=== PATIENT | male | born 1945 | race Caucasian/White ===

== ENCOUNTER 2021-08-14 09:42 | Inpatient (IN) | payer MEDICARE, OTHER ==
[~2021-08-14] VITALS: Ht 182.9 cm; Wt 111.1 kg
--- NOTE | 2021-08-14 11:09 | NUR ---
PT C/O SOB, COUGH, PERIODIC NAUSEA, AND FATIGUE THIS WEEK. SOB AND COUGH INCREASE WITH EXERTION. PT DENIES CP, DIZZINESS, OR FEVERS. PT HAS REC'VD BOTH COVID VACCINES. PT DENIES RESPIRATORY HX. PT CONNECTED TO VS MONITORING. RAILS UP. BELONGINGS AND CALL LIGHT WITHIN REACH. AWAITING FURTHER ORDERS.
[2021-08-14] MEDS ORDERED: SODIUM CHLORIDE 0.9% 1,000ML IVBOLUS ONE (11:30)
[2021-08-14] MEDS ORDERED: SODIUM CHLORIDE FLUSH 10ML SYR IVF ONE (11:30)
[2021-08-14 12:00] LABS: BASOPHILS % (AUTO) 0 % (0-1); EOSINOPHILS % (AUTO) 0 % (1-7); LYMPHOCYTES % (AUTO) 7 % (22-44); MEAN CORPUSCULAR HEMOGLOBIN 32.6 pg (27.5-34.5); MEAN CORPUSCULAR HGB CONC 35.9 g/dL (33.2-36.2); MEAN PLATELET VOLUME 6.8 fL (7.4-10.4); MONOCYTES % (AUTO) 9 % (2-9); NEUTROPHILS % (AUTO) 84 % (42-75); PLATELET COUNT 266 x10^3/uL (130-400); RED BLOOD COUNT 3.89 x10^6/uL (4.38-5.82); RED CELL DISTRIBUTION WIDTH 13.6 % (9.4-14.8)
[2021-08-14 12:08] LABS: ALBUMIN 3.3 g/dL (3.4-5.0); ANION GAP 12 mmol/L (5-15); CALCIUM 8.9 mg/dL (8.5-10.1); CHLORIDE 97 mmol/L (98-107)
[2021-08-14 12:15] LABS: ALANINE AMINOTRANSFERASE 87 U/L (12-78); ALKALINE PHOSPHATASE 71 U/L (45-117); BILIRUBIN,TOTAL 0.8 mg/dL (0.2-1.0); CREATININE 0.91 mg/dL (0.7-1.3); TROPONIN I < 0.015 ng/mL (0.000-0.045)
--- NOTE | 2021-08-14 15:03 | NUR ---
BREAK RN: PT IS 87% RA WHEN STANDING UP FROM THE BED. PT REPORTS HE FEELS WEAK. PT NOW RESTING IN BED ON 3L NC AT 94%. ENERGY BROKER ON. VS STABLE. CALL LIGHT IN PLACE. WILL CONTINUE TO MONITOR WHILE PRIMARY RN IS ON BREAK.
[2021-08-14] MEDS ORDERED: NS + 20MEQ KCL 1,000 ML IV ONE (17:14)
[2021-08-14] MEDS ORDERED: ENOXAPARIN 40 MG/0.4 ML ONE (17:14)
[2021-08-14] MEDS: NS + 20MEQ KCL 1,000 ML IV SCH (17:22)
[2021-08-14] MEDS: ENOXAPARIN 40 MG/0.4 ML SQ SCH (17:23)
[2021-08-14] MEDS ORDERED: ONDANSETRON 2MG/ML, 2ML IVPush PRN (17:30)
[2021-08-14] MEDS ORDERED: GUAIFENESIN/DM 200-20MG, 10ML UDC PO PRN (17:30)
[2021-08-14] MEDS ORDERED: MELATONIN 5 MG TABLET PO PRN (17:30)
[2021-08-14] MEDS ORDERED: ONDANSETRON ODT 4 MG PO PRN (17:30)
--- NOTE | 2021-08-14 19:02 | NUR ---
Report from Tyesha CHRISTENSEN
[2021-08-14] MEDS: INSULIN LISPRO 100 UNITS/ML, PEN SQ-INSULIN SCH (20:08)
[2021-08-14 22:00] VITALS: BP 153/87
--- NOTE | 2021-08-14 22:14 | NUR ---
Report to Marta CHRISTENSEN
[2021-08-15 00:10] VITALS: BP 162/84
[2021-08-15] MEDS: NS + 20MEQ KCL 1,000 ML IV SCH ×2 (03:52→14:38)
[2021-08-15 04:36] LABS: MICROSCOPIC INDICATED
[2021-08-15 07:38] LABS: BASOPHILS % (AUTO) 1 % (0-1); EOSINOPHILS % (AUTO) 2 % (1-7); LYMPHOCYTES % (AUTO) 11 % (22-44); MEAN CORPUSCULAR HEMOGLOBIN 32.6 pg (27.5-34.5); MEAN CORPUSCULAR HGB CONC 36.2 g/dL (33.2-36.2); MEAN PLATELET VOLUME 6.3 fL (7.4-10.4); MONOCYTES % (AUTO) 13 % (2-9); NEUTROPHILS % (AUTO) 74 % (42-75); PLATELET COUNT 253 x10^3/uL (130-400); RED BLOOD COUNT 3.65 x10^6/uL (4.38-5.82); RED CELL DISTRIBUTION WIDTH 13.4 % (9.4-14.8)
[2021-08-15 07:45] LABS: CHLORIDE 106 mmol/L (98-107)
[2021-08-15 07:54] LABS: ANION GAP 8 mmol/L (5-15); CALCIUM 8.1 mg/dL (8.5-10.1); CREATININE 0.77 mg/dL (0.7-1.3)
[2021-08-15 08:00] VITALS: BP 174/96
[2021-08-15] MEDS: LISINOPRIL 10 MG TABLET PO SCH (08:44)
[2021-08-15] MEDS: INSULIN LISPRO 100 UNITS/ML, PEN SQ-INSULIN SCH ×4 (09:04→21:50)
[2021-08-15 13:52] VITALS: BP 159/87
[2021-08-15] MEDS ORDERED: CYANOCOBALAMIN 1,000 MCG/ML, 1ML IM ONE (15:30)
[2021-08-15] MEDS ORDERED: METF500T17 PO (16:36)
[2021-08-15] MEDS ORDERED: LEVO100T5 PO (16:36)
[2021-08-15] MEDS ORDERED: CITA20TA6 PO (16:36)
[2021-08-15] MEDS ORDERED: LOSA25TA25 PO (16:36)
[2021-08-15] MEDS ORDERED: METO5VIA PO (16:36)
[2021-08-15] MEDS ORDERED: TAMS-11 PO (16:36)
[2021-08-15] MEDS ORDERED: PRAV40TA2 PO (16:36)
[2021-08-15] MEDS ORDERED: GABA600T7 PO (16:36)
[2021-08-15] MEDS ORDERED: GEMF-31 PO (16:36)
[2021-08-15] MEDS ORDERED: ALLO300T PO (16:36)
[2021-08-15] MEDS: ENOXAPARIN 40 MG/0.4 ML SQ SCH (17:11)
[2021-08-15] MEDS: ASCORBIC ACID 500 MG TABLET PO SCH (17:11)
[2021-08-15 19:49] VITALS: BP 165/89
[2021-08-15] MEDS: MELATONIN 5 MG TABLET PO SCH (21:48)
[2021-08-16] MEDS: NS + 20MEQ KCL 1,000 ML IV SCH ×2 (00:17→10:55)
[2021-08-16 01:46] VITALS: BP 161/82
[2021-08-16] MEDS: MULTIVITS,STRESS FORMULA 1 TABLET PO SCH (08:25)
[2021-08-16] MEDS: ZINC SULFATE 220 MG CAPSULE PO SCH (08:25)
[2021-08-16] MEDS: ASCORBIC ACID 500 MG TABLET PO SCH ×2 (08:25→16:55)
[2021-08-16] MEDS: LISINOPRIL 10 MG TABLET PO SCH (08:25)
[2021-08-16] MEDS: CHOLECALCIFEROL 5,000u TAB PO SCH (08:26)
[2021-08-16 08:31] VITALS: BP 187/110
[2021-08-16] MEDS: FLUTICASONE/VILANTEROL 100-25MCG/INH INH SCH (08:31)
[2021-08-16] MEDS: ENALAPRILAT 1.25 MG/ML, 2ML IVPush PRN ×2 (08:54→11:06)
[2021-08-16] MEDS: INSULIN LISPRO 100 UNITS/ML, PEN SQ-INSULIN SCH ×4 (08:55→21:03)
[2021-08-16 13:20] VITALS: BP 158/76
[2021-08-16] MEDS ORDERED: TRAZODONE 50MG TABLET PO PRN (16:30)
[2021-08-16] MEDS: ENOXAPARIN 40 MG/0.4 ML SQ SCH (16:55)
[2021-08-16 19:12] VITALS: BP 175/81
[2021-08-16] MEDS: MELATONIN 5 MG TABLET PO SCH (20:30)
[2021-08-17] MEDS: ACETAMINOPHEN 325 MG TABLET PO PRN ×2 (02:30→10:05)
[2021-08-17 02:32] VITALS: BP 156/83
[2021-08-17 06:36] VITALS: BP 153/88
[2021-08-17 06:45] LABS: BASOPHILS % (AUTO) 1 % (0-1); EOSINOPHILS % (AUTO) 2 % (1-7); LYMPHOCYTES % (AUTO) 12 % (22-44); MEAN CORPUSCULAR HEMOGLOBIN 32.1 pg (27.5-34.5); MEAN CORPUSCULAR HGB CONC 35.4 g/dL (33.2-36.2); MEAN PLATELET VOLUME 6.1 fL (7.4-10.4); MONOCYTES % (AUTO) 17 % (2-9); NEUTROPHILS % (AUTO) 69 % (42-75); PLATELET COUNT 311 x10^3/uL (130-400); RED BLOOD COUNT 3.55 x10^6/uL (4.38-5.82); RED CELL DISTRIBUTION WIDTH 13.5 % (9.4-14.8)
[2021-08-17 06:50] LABS: ALBUMIN 2.6 g/dL (3.4-5.0); ANION GAP 8 mmol/L (5-15); CALCIUM 8.4 mg/dL (8.5-10.1); CHLORIDE 104 mmol/L (98-107)
[2021-08-17 06:53] LABS: ALANINE AMINOTRANSFERASE 104 U/L (12-78); ALKALINE PHOSPHATASE 69 U/L (45-117); BILIRUBIN,TOTAL 0.7 mg/dL (0.2-1.0); CREATININE 0.66 mg/dL (0.7-1.3); TOTAL PROTEIN 6.8 g/dL (6.4-8.2)
[2021-08-17 09:21] VITALS: BP 149/88
[2021-08-17] MEDS: FLUTICASONE/VILANTEROL 100-25MCG/INH INH SCH (09:27)
[2021-08-17] MEDS: ASCORBIC ACID 500 MG TABLET PO SCH ×3 (09:27→20:16)
[2021-08-17] MEDS: CHOLECALCIFEROL 5,000u TAB PO SCH (09:27)
[2021-08-17] MEDS: ZINC SULFATE 220 MG CAPSULE PO SCH (09:27)
[2021-08-17] MEDS: MULTIVITS,STRESS FORMULA 1 TABLET PO SCH (09:27)
[2021-08-17] MEDS: LISINOPRIL 10 MG TABLET PO SCH (09:27)
[2021-08-17] MEDS ORDERED: CHOL500045 PO (09:28)
[2021-08-17] MEDS ORDERED: ZINC220C8 PO (09:28)
[2021-08-17] MEDS: INSULIN LISPRO 100 UNITS/ML, PEN SQ-INSULIN SCH ×4 (09:28→20:15)
[2021-08-17] MEDS ORDERED: ASCO500T9 PO (09:28)
[2021-08-17] MEDS ORDERED: FLUT1AER INH (11:48)
[2021-08-17 13:53] VITALS: BP 152/76
[2021-08-17] MEDS: ENOXAPARIN 40 MG/0.4 ML SQ SCH (20:15)
[2021-08-17] MEDS: MELATONIN 5 MG TABLET PO SCH (20:17)
[2021-08-17 20:18] VITALS: BP 178/93
[2021-08-17] MEDS: ENALAPRILAT 1.25 MG/ML, 2ML IVPush PRN (20:25)
[2021-08-18 01:54] VITALS: BP 159/83
[2021-08-18] MEDS ORDERED: LORazepam 1MG TABLET PO ONE (02:00)
[2021-08-18 07:45] VITALS: BP 162/75
[2021-08-18] MEDS: INSULIN LISPRO 100 UNITS/ML, PEN SQ-INSULIN SCH ×2 (08:00→11:36)
[2021-08-18] MEDS: CHOLECALCIFEROL 5,000u TAB PO SCH (08:00)
[2021-08-18] MEDS: ZINC SULFATE 220 MG CAPSULE PO SCH (08:00)
[2021-08-18] MEDS: LISINOPRIL 10 MG TABLET PO SCH (08:01)
[2021-08-18] MEDS: FLUTICASONE/VILANTEROL 100-25MCG/INH INH SCH (08:01)
[2021-08-18] MEDS: ASCORBIC ACID 500 MG TABLET PO SCH (08:01)
[2021-08-18] MEDS: MULTIVITS,STRESS FORMULA 1 TABLET PO SCH (08:01)
[2021-08-18 13:31] VITALS: BP 149/84
== END 2021-08-18 14:26 | disposition home or self-care (01) | DRG 177 ==
LOC: ED 10:43 → EDIP 15:12 → SUATTDRO 15:25 → 3N 22:47
PROVIDERS: ADMIT Internal Medicine; ATTEND Family Medicine
DX: U07.1 COVID-19 (principal); J96.01 Acute respiratory failure with hypoxia; J12.82 Pneumonia due to coronavirus disease 2019; E87.1 Hypo-osmolality and hyponatremia; E87.2 Acidosis; D64.9 Anemia, unspecified; E11.65 Type 2 diabetes mellitus with hyperglycemia; E66.9 Obesity, unspecified; I10 Essential (primary) hypertension; R74.01 Elevation of levels of liver transaminase levels; R53.81 Other malaise; Z68.33 Body mass index [BMI] 33.0-33.9, adult
CPT/HCPCS: 36415; 71045; 80048; 80053; 81001; 82962; 83735; 84484; 85025; 85379; 87040; 93005; 93306; 96360; 96361; 96372; G0378; J1650; J3480; Q0162; U0005; J1815; J3420; J7030; U0003